=== PATIENT | female | born 1960 | race Caucasian/White ===

== ENCOUNTER → 2021-04-16 | Emergency (ER) | payer OTHER ==
[~2021-04-16] VITALS: Ht 165.1 cm; Wt 65.9 kg
[~2021-04-16] MED LIST: CEPHALEXIN500 M1 PO
[2021-04-16 18:36] VITALS: BP 98/63; PULSE 51
== END ==
LOC: COL.ER 18:29
DX: S81.812A Laceration without foreign body, left lower leg, initial encounter (principal); Z23 Encounter for immunization; X58.XXXA Exposure to other specified factors, initial encounter

== ENCOUNTER → 2021-04-26 | Outpatient (CLI) | payer OTHER ==
[2021-04-26 09:16] VITALS: BP 121/68; PULSE 63; TEMP 97.2
== END ==
LOC: COL.ER 09:05
DX: Z48.02 Encounter for removal of sutures (principal)